=== PATIENT | female | born 1980 | race Caucasian/White ===

== ENCOUNTER 2020-10-15 04:10 | Inpatient (IN) | payer MEDICAID, SELFPAY ==
[~2020-10-15] VITALS: Ht 165.1 cm; Wt 113.4 kg
[~2020-10-15 04:10] MED LIST: ALBU0.0912 IH; ASPI-1205 PO
[2020-10-15 04:16] VITALS: BP 109/74
--- NOTE | 2020-10-15 04:16 | NUR ---
TO BED AMBULATORY
--- NOTE | 2020-10-15 04:20 | NUR ---
PT. IS A 40 Y/O FEMALE THAT CAME INTO ED WITH C/O OF SOB. PT. STATES THAT IT STARTED ON SUNDAY BECAUSE OF ALLERGIES AND PROGESSED. PT. STATES SHE HAS PAIN UNDER HER STERNUM AND BACK, RATING IT A 7/10 ON THE PAIN SCALE. SHE ALSO STATES THAT SHE VOMITED AT 3AM, BUT DENIES DIARRHEA. SKIN IS PINK/WARM/DRY; AAOX4 WITH EVEN AND STEADY GAIT;PT DENIES ANY FEVER, CP, SOB, OR COUGH AT THIS TIME; VSS; PATIENT POSITIONED FOR COMFORT; HOB ELEVATED; BEDRAILS UP X2; BED DOWN. ER MD MADE AWARE OF PT STATUS. PMH: ASTHMA ALLERGIES: NKA
[2020-10-15] MEDS ORDERED: ALBUTEROL SULFATE/IPRATROPIU 3 ML SOL IH ONE (04:25)
[2020-10-15] MEDS ORDERED: methylPREDNISolone SS 125 MG/2 ML VIAL IM ONE (04:25)
--- NOTE | 2020-10-15 04:30 | NUR ---
Respiratory Therapist at bedside for respiratory intervention.
[2020-10-15] MEDS ORDERED: ACETAMINOPHEN EXTRA STRENGTH 500 MG TAB PO ONE (04:55)
[2020-10-15 05:17] LABS: BASOPHILS % (AUTO) 0.5 % (0.0-2.0); EOSINOPHILS # (AUTO) 0.6 K/uL (0-0.4); EOSINOPHILS % (AUTO) 5.8 % (0.0-4.0); HEMATOCRIT 42.1 % (36-48); HEMOGLOBIN 14.1 g/dL (12.0-16.0); LYMPHOCYTES # (AUTO) 1.7 K/uL (2.5-16.5); LYMPHOCYTES % (AUTO) 16.9 % (20.5-51.1); MEAN CORPUSCULAR HEMOGLOBIN 30 pg (27-31); MEAN CORPUSCULAR HGB CONC 34 g/dL (33-37); MONOCYTES % (AUTO) 9.8 % (1.7-9.3); NEUTROPHILS # (AUTO) 6.5 K/uL (1.8-7.7); PLATELET COUNT (AUTO) 221 K/uL (140-450); RED BLOOD CELL COUNT(AUTO) 4.79 MIL/uL (4.20-5.40); RED CELL DISTRIBUTION WIDTH 13.9 % (11.6-13.7); WHITE BLOOD COUNT (AUTO) 9.8 K/uL (4.8-10.8)
[2020-10-15 05:40] LABS: ALBUMIN 3.4 g/dL (3.4-5.0); ANION GAP 10.7 (8-16); CARBON DIOXIDE 27.9 mmol/L (21-32); CREATININE 0.7 mg/dL (0.6-1.3); POTASSIUM 3.6 mmol/L (3.5-5.1); TOTAL BILIRUBIN 0.6 mg/dL (0.0-1.0)
--- NOTE | 2020-10-15 05:40 | NUR ---
RORY (COVID) SWAB COMPLETED AND TAKEN TO LAB.
[2020-10-15] MEDS ORDERED: ALBU0.0912 IH ×2 (05:50→06:09)
[2020-10-15] MEDS ORDERED: PRED20TA5 PO (05:50)
--- NOTE | 2020-10-15 07:10 | NUR ---
GAVE REPORT TO KWESI LAM. TRANSFER OF CARE AT THIS TIME.
[2020-10-15] MEDS ORDERED: ONDANSETRON 4 MG/2 ML VIAL IM/IVP PRN (08:05)
[2020-10-15] MEDS ORDERED: HYDROcodone/APAP 7.5/325 MG 1 TAB PO PRN (08:05)
[2020-10-15] MEDS ORDERED: ZOLPIDEM 5 MG TAB PO PRN (08:05)
[2020-10-15] MEDS ORDERED: POTASSIUM CHLORIDE 10 MEQ TABER PO PRN (08:05)
[2020-10-15] MEDS ORDERED: ACETAMINOPHEN 325 MG TAB PO PRN (08:05)
[2020-10-15] MEDS ORDERED: DOCUSATE SODIUM 100 MG GELCAP PO PRN (08:05)
--- NOTE | 2020-10-15 08:09 | NUR ---
Patient will be admitted to care of Dr Mora. Admited to [facility]. Will go to room 104B. Belongings list completed. Report to Micaela OROSCO.
[2020-10-15 08:15] VITALS: BP 138/88
[2020-10-15] MEDS ORDERED: ALBUTEROL SULFATE/IPRATROPIU 3 ML SOL IH PRN (08:15)
--- NOTE | 2020-10-15 08:15 | NUR ---
RECEIVED REPORT FROM ER. PATIENT IS AWAKE, ALERT, AND COOPERATIVE. ADMITTING DIAGNOSIS ASTHMA EXACERBATION. RESPIRATION EVEN UNLABORED ON 2L NC O2. SATING 95% NO DISTRESS NOTED. SKIN IS WARM AND DRY. IV PATENT AND INTACT. WHEEZES HEARD UPON AUSCULTATION ON THE BILATERAL LUNGS. HEART RATE REGULAR. S1&S2 NOTED. BOWEL SOUNDS PRESENT IN ALL QUADRANTS. ABDOMEN SOFT AND NON-TENDER. PLAN OF CARE WAS DISCUSSED. ALL SAFETY MEASURES IN PLACE. VITALS TAKEN. MRSA SCREEN DONE. ORIENT PATIENT TO ROOM, STAFF, AND CALL LIGHT. WILL CONTINUE TO MONITOR.
[2020-10-15] MEDS: AZITHROMYCIN 250 MG TAB PO SCH (09:30)
[2020-10-15] MEDS: NACL 0.9% 1,000 ML IV SCH ×3 (09:30→20:36)
[2020-10-15] MEDS: PANTOPRAZOLE 40 MG TABEC PO SCH (09:30)
[2020-10-15] MEDS: ALBUTEROL SULFATE/IPRATROPIU 3 ML SOL IH SCH ×2 (11:49→19:25)
[2020-10-15 12:29] LABS: PROTHROMBIN TIME 9.9 secs (10.8-13.4)
[2020-10-15 12:41] LABS: CHOL/HDL RATIO 3.1 (1-4.5); FREE T4 (FREE THYROXINE) 0.85 ng/dL (0.76-1.46); PHOSPHORUS 2.7 mg/dL (2.5-4.9); THYROID STIMULATING HORMONE 0.45 uIU/mL (0.34-3.74)
--- NOTE | 2020-10-15 12:57 | NUR ---
DISCHARGE PLANNING: THIS IS A 40 Y/O FEMALE PATIENT FROM HOME, WITH A DX OF ASTHMA EXACERBATION. PT HAS A HX OF ASTHMA ,OBESITY AND COVID 19. CXR SHOWED NO EVIDENCE OF ACUTE CARDIOPULMONARY DISEASE. RAPID COVID TEST NEGATIVE. ON 02 2L/NC SATING 95%. ADMINISTERED IV ABX ROCEPHIN AND ZITHROMAX AND CONTINUED HOME MEDS. CONSULTED WITH PULMO. DC PLAN TO GO HOME WHEN STABLE. CM TO FOLLOW.
--- NOTE | 2020-10-15 13:14 | NUR ---
CHECKED ON PATIENT. PATIENT IS AWAKE, IN BED NO DISTRESS NOTED.
--- NOTE | 2020-10-15 14:00 | NUR ---
SWAB PATIENT FOR INFLUENZA A&B.
--- NOTE | 2020-10-15 14:39 | NUR ---
PATIENT HAS BEEN SCREENED AND CATEGORIZED LOW NUTRITION RISK. PATIENT WILL BE SEEN WITHIN 7 DAYS OF ADMISSION. 10/21/[address]
--- NOTE | 2020-10-15 16:09 | NUR ---
PATIENT ALERT AND AWAKE. NOT DISTRESS NOTED. PATIENT DIAMOND HAVING PAIN AT THIS TIME. PATIENT IN BED WATCHING TV.
[2020-10-15 17:08] VITALS: BP 133/79
--- NOTE | 2020-10-15 19:02 | NUR ---
ENDORSED PATIENT TO HORSE SHOW JUDGE NURSE FOR CONTINUITY OF CARE
--- NOTE | 2020-10-15 19:10 | NUR ---
RECEIVED BEDSIDE ENDORSEMENT FROM AM SHIFT RN. PATIENT IS AAOX4, ON 2L NC O2 SAT AT 92%. NO SOB, DENIES PAIN, IVF INFUSING, AMBULATORY, SKIN INTACT, SAFETY MEASURES IN PLACE, PLAN OF CARE DISCUSSED, CALL LIGHT WITHIN REACH.
--- NOTE | 2020-10-15 19:36 | NUR ---
TITRATED PT TO ROOM AIR, TOLERATED TX WELL, WILL CONTINUE TO MONITOR
[2020-10-15 20:00] VITALS: BP 122/70
--- NOTE | 2020-10-15 20:36 | NUR ---
IVF FINISHED, HANGED A NEW BAG IV NS 1L AT 100 CC/HR ORDERED.
--- NOTE | 2020-10-15 22:44 | NUR ---
PT SWABBED FOR RSV ORDERED, TOLERATED WELL, CALL LIGHT WITHIN REACH.
[2020-10-15 23:16] LABS: RSV NEGATIVE (NEGATIVE)
[2020-10-16 04:00] VITALS: BP 121/63
--- NOTE | 2020-10-16 04:00 | NUR ---
V/S TAKEN, NO SOB, O2 SAT 93% ON ROOM AIR, WILL CONTINUE TO MONITOR, CALL LIGHT WITHIN REACH.
[2020-10-16 06:07] LABS: T4 (THYROXINE) 8.8 ug/dL (4.5-12.0)
[2020-10-16 06:44] LABS: ANION GAP 9.7 (8-16); CARBON DIOXIDE 25.3 mmol/L (21-32); CREATININE 0.5 mg/dL (0.6-1.3)
--- NOTE | 2020-10-16 06:49 | NUR ---
PATIENT STABLE, NO DISTRESS, NO SOB, ALL NEEDS ATTENDED, DENIES PAIN, KEPT COMFORTABLE, SAFETY MEASURES IN PLACE, CALL LIGHT WITHIN REACH.
[2020-10-16] MEDS: ALBUTEROL SULFATE/IPRATROPIU 3 ML SOL IH SCH ×3 (06:54→19:13)
--- NOTE | 2020-10-16 07:15 | NUR ---
REPORT RECEIVED FROM BREAST SPLITTER RN. PATIENT ALERT AND AWAKE. NO DISTRESS NOTED. O2 SAT 88-91% ON ROOM AIR. EDUCATED HER ON DEEP BREATHING EXERCISE AND USE OF INCENTIVE SPIROMETER. PATIENT DENIES HAVING PAIN AT THIS TIME. IV SITE INTACT, ASYMPTOMATIC, INFUSING IVF WELL. VERBALIZED PLAN OF CARE. SHE VERBALIZED UNDERSTANDING. WILL CONTINUE TO MONITOR PATIENT.
[2020-10-16 07:18] LABS: BASOPHILS % (AUTO) 0.1 % (0.0-2.0); EOSINOPHILS % (AUTO) 0.1 % (0.0-4.0); HEMATOCRIT 40.4 % (36-48); HEMOGLOBIN 13.7 g/dL (12.0-16.0); LYMPHOCYTES # (AUTO) 1.8 K/uL (2.5-16.5); LYMPHOCYTES % (AUTO) 20.3 % (20.5-51.1); MEAN CORPUSCULAR HEMOGLOBIN 30 pg (27-31); MEAN CORPUSCULAR HGB CONC 34 g/dL (33-37); MONOCYTES # (AUTO) 1.1 K/uL (0.8-1.0); MONOCYTES % (AUTO) 12.6 % (1.7-9.3); NEUTROPHILS # (AUTO) 5.9 K/uL (1.8-7.7); NEUTROPHILS % (AUTO) 66.9 % (42.2-75.2); PLATELET COUNT (AUTO) 231 K/uL (140-450); RED BLOOD CELL COUNT(AUTO) 4.59 MIL/uL (4.20-5.40); RED CELL DISTRIBUTION WIDTH 14.3 % (11.6-13.7); WHITE BLOOD COUNT (AUTO) 8.8 K/uL (4.8-10.8)
[2020-10-16 07:51] VITALS: BP 96/55
[2020-10-16] MEDS ORDERED: DEXAMETHASONE 4 MG TAB ONE (08:20)
[2020-10-16] MEDS: NACL 0.9% 1,000 ML IV SCH ×2 (08:23→20:18)
[2020-10-16] MEDS: PANTOPRAZOLE 40 MG TABEC PO SCH (08:23)
[2020-10-16] MEDS: AZITHROMYCIN 250 MG TAB PO SCH (08:23)
--- NOTE | 2020-10-16 08:25 | NUR ---
ORDERED MEDICATIONS GIVEN. PATIENT TOLERATING THEM. NO COMPLAINTS AT THIS TIME. ON ROOM AIR, O2 SAT 91-92%. NO S/S OF DISTRESS OR SOB NOTED. CALL LIGHT WITHIN REACH, WILL CONTINUE TO MONITOR PATIENT.
[2020-10-16] MEDS ORDERED: DEXAMETHASONE 4 MG TAB PO SCH (09:00)
[2020-10-16] MEDS: guaiFENesin DM 200/20 MG-10 ML 10 ML UDC PO PRN ×2 (10:50→17:29)
--- NOTE | 2020-10-16 10:50 | NUR ---
PT HAS COUGH, REQUESTED FOR PRN COUGH MEDICATION. GIVEN REQUESTED. NO OTHER COMPLAINTS AT THIS TIME. O2 93-94% ON ROOM AIR. WILL CONTINUE TO MONITOR.
[2020-10-16] MEDS: methylPREDNISolone SS 125 MG/2 ML VIAL IVP SCH ×2 (13:27→20:20)
--- NOTE | 2020-10-16 15:45 | NUR ---
CALLED LAB TO ASK ABOUT PCR COVID PENDING TEST. WAS INFORMED RESULTS WILL USUALLY COME BACK IN 2-3 DAYS. PT HAS NO COMPLAINTS AT THIS TIME. WILL CONTINUE TO MONITOR PATIENT.
--- NOTE | 2020-10-16 16:10 | NUR ---
RECEIVED CALL FROM TRACIE FROM LAB, INFORMED NEED FOR URINE SAMPLE, INFORMED PATIENT. PATIENT AWARE TO WHEN VOID, GIVE URINE SAMPLE. CALL LIGHT WITHIN REACH, WILL CONTINUE TO MONITOR PATIENT.
[2020-10-16 16:30] VITALS: BP 114/63
--- NOTE | 2020-10-16 18:40 | NUR ---
PT HAS NO COMPLAINTS AT THIS TIME. ASKED ABOUT POSSIBILITY OF GOING HOME TODAY. INFORMED HER OF PLAN OF CARE, SHE VERBALIZED UNDERSTANDING. WILL CONTINUE TO MONITOR PATIENT AND ENDORSE TO GROUND WATER CONTRACTOR NURSE.
--- NOTE | 2020-10-16 19:21 | NUR ---
RECEIVED BEDSIDE ENDORSEMENT FROM AM SHIFT RN. PATIENT IS AAOX4, ON ROOM AIR, NO SOB, IVF INFUSING, AMBULATORY, SKIN INTACT, SAFETY MEASURES IN PLACE, PLAN OF CARE DISCUSSED, CALL LIGHT WITHIN REACH.
[2020-10-16] MEDS: BUDESONIDE 0.5 MG/2 ML NEBU INH SCH (19:23)
[2020-10-16 20:00] VITALS: BP 135/80
--- NOTE | 2020-10-16 20:27 | NUR ---
PATIENT IS AWAKE AND TALKING ON THE PHONE, DUE MEDS GIVEN ORDERED, IVF FINISHED AND REPLACED, IV SITE INTACT AND PATENT, WILL CONTINUE TO MONITOR, CALL LIGHT WITHIN REACH.
--- NOTE | 2020-10-17 | NUR ---
PATIENT IS ASLEEP. RESPIRATION EVEN AND UNLABORED, WILL CONTINUE TO MONITOR, CALL LIGHT WITHIN REACH.
--- NOTE | 2020-10-17 03:30 | NUR ---
O2 SAT 90%, NOTED CHEST RISE, CALL LIGHT WITHIN REACH.
[2020-10-17] MEDS: methylPREDNISolone SS 125 MG/2 ML VIAL IVP SCH (04:52)
--- NOTE | 2020-10-17 04:58 | NUR ---
DUE MEDS GIVEN ORDERED, TOLERATED WELL, CALL LIGHT WITHIN REACH.
--- NOTE | 2020-10-17 06:42 | NUR ---
PATIENT STABLE, NO SOB, NO DISTRESS, NO ACUTE EVENTS OVERNIGHT, ALL NEEDS ATTENDED, SAFETY MEASURES IN PLACE, CALL LIGHT WITHIN REACH.
[2020-10-17 07:09] LABS: BASOPHILS % (AUTO) 0.1 % (0.0-2.0); HEMATOCRIT 43.6 % (36-48); HEMOGLOBIN 14.5 g/dL (12.0-16.0); LYMPHOCYTES # (AUTO) 1.5 K/uL (2.5-16.5); LYMPHOCYTES % (AUTO) 13.8 % (20.5-51.1); MEAN CORPUSCULAR HEMOGLOBIN 30 pg (27-31); MEAN CORPUSCULAR HGB CONC 33 g/dL (33-37); MEAN CORPUSCULAR VOLUME 89.1 fL (80-94); MONOCYTES # (AUTO) 0.3 K/uL (0.8-1.0); MONOCYTES % (AUTO) 2.5 % (1.7-9.3); NEUTROPHILS # (AUTO) 8.9 K/uL (1.8-7.7); NEUTROPHILS % (AUTO) 83.6 % (42.2-75.2); PLATELET COUNT (AUTO) 260 K/uL (140-450); WHITE BLOOD COUNT (AUTO) 10.6 K/uL (4.8-10.8)
[2020-10-17 07:13] LABS: ANION GAP 11.1 (8-16); CARBON DIOXIDE 24.8 mmol/L (21-32); CREATININE 0.5 mg/dL (0.6-1.3); POTASSIUM 3.9 mmol/L (3.5-5.1)
--- NOTE | 2020-10-17 07:20 | NUR ---
RECEIVED BEDSIDE ENDORSEMENT FROM ORANGE PICKER NURSE FOR CONTINUITY OF CARE. PATIENT IS AAOX4, RESPIRATIONS EVEN AND UNLABORED. ON ROOM AIR AND NO SIGNS OF DISTRESS NOTED. PATIENT COMPLAINS OF COUGH WILL MEDICATE ORDERED. SKIN IS WARM AND DRY. IV SITE ON RAC 20G. IVF INFUSING, AMBULATORY. PLAN OF CARE DISCUSSED. SAFETY MEASURES IN PLACE, CALL LIGHT WITHIN REACH. WILL CONTINUE TO MONITOR.
[2020-10-17] MEDS: ALBUTEROL SULFATE/IPRATROPIU 3 ML SOL IH SCH (07:35)
[2020-10-17] MEDS: BUDESONIDE 0.5 MG/2 ML NEBU INH SCH (07:35)
[2020-10-17 08:00] VITALS: BP 131/73
[2020-10-17] MEDS: AZITHROMYCIN 250 MG TAB PO SCH (09:41)
[2020-10-17] MEDS: PANTOPRAZOLE 40 MG TABEC PO SCH (09:41)
[2020-10-17] MEDS: guaiFENesin DM 200/20 MG-10 ML 10 ML UDC PO PRN (09:46)
--- NOTE | 2020-10-17 09:46 | NUR ---
PATIENT REQUESTED FOR COUGH MEDICATION DUE TO PERSISTENT COUGH. ADMINISTERED ROBITUSSIN PO PER MD ORDERED.
[2020-10-17] MEDS: NACL 0.9% 1,000 ML IV SCH (09:50)
--- NOTE | 2020-10-17 09:50 | NUR ---
ALL SCHEDULED MEDS GIVEN. PT IS STABLE. NO DISTRESS NOTED. WILL CONTINUE TO MONITOR.
[2020-10-17] MEDS ORDERED: BUDE1AER IH (10:00)
[2020-10-17] MEDS ORDERED: PRED5TAB7 PO (10:00)
[2020-10-17] MEDS ORDERED: AZIT250T3 PO (10:00)
[2020-10-17] MEDS ORDERED: CEPH250C16 PO (10:00)
--- NOTE | 2020-10-17 10:05 | NUR ---
RECEIVED NEW DISCHARGE ORDERS FOR PATIENT. WILL ENDORSE TO DISCHARGE INSTRUCTIONS TO PATIENT.
[2020-10-17 10:36] VITALS: BP 131/73
--- NOTE | 2020-10-17 10:45 | NUR ---
ENDORSED DISCHARGE INSTRUCTIONS TP PATIENT. PATIENT VERBALIZE UNDERSTANDING AND SIGNED DISCHARGE FORMS.
--- NOTE | 2020-10-17 11:25 | NUR ---
PATIENT DISCHARGED OFF THE UNIT. IV CATH AND ID BAND REMOVED. PATIENT PICKED UP BY FAMILY AT THE FRONT LOBBY. PATIENT WAS STABLE PRIOR TO DISCHARGE.
[2020-10-17 13:27] LABS: APPEARANCE,URINE CLEAR (CLEAR); BILIRUBIN,URINE NEGATIVE (NEGATIVE); BLOOD, URINE NEGATIVE (NEGATIVE); COLOR,URINE YELLOW (YELLOW); LEUKOCYTE ESTERASE ,URINE NEGATIVE (NEGATIVE); NITRITE, URINE NEGATIVE (NEGATIVE); PH,URINE 5.5 (5.0-9.0); UGLUCOSE 1+ (NEGATIVE)
[2020-10-17 13:41] LABS: BARBITURATE, URINE NEGATIVE ng/ml (NEG <=200); BENZODIAZEPINE, URINE NEGATIVE ng/mL (NEG <=200); CANNABINOID, URINE NEGATIVE ng/mL (NEG <=50); COCAINE, URINE NEGATIVE ng/mL (NEG <=300); OPIATE, URINE NEGATIVE ng/mL (NEG <=2000); PHENCYCLIDINE SCREEN,URINE NEGATIVE ng/mL (NEG <=25)
== END 2020-10-17 11:25 | disposition home or self-care (01) | DRG 189 ==
LOC: MED 04:10 → MMU 06:25 → MTU 07:02
PROVIDERS: ADMIT Family Medicine; ATTEND Family Medicine
DX: J96.01 Acute respiratory failure with hypoxia (principal); J45.901 Unspecified asthma with (acute) exacerbation; Z68.41 Body mass index [BMI] 40.0-44.9, adult; Z20.822 Contact with and (suspected) exposure to COVID-19; E66.01 Morbid (severe) obesity due to excess calories; R73.9 Hyperglycemia, unspecified; Z86.16 Personal history of COVID-19
CPT/HCPCS: 36415; 71045; 80048; 80053; 80305; 81003; 82150; 83036; 83690; 83735; 83880; 84100; 84436; 84439; 84443; 84479; 84484; 85025; 85610; 85730; 87081; 87420; 87804; 93005; 94640; 96372; 99291; 99292; J0696; J2930; J7060; J7626; U0003

== ENCOUNTER 2023-12-12 11:27 | Emergency (ER) | payer SELFPAY ==
[~2023-12-12] VITALS: Ht 165.1 cm; Wt 131.1 kg
[~2023-12-12 11:27] MED LIST changes: -ASPI-1205 PO; +AZIT250T3 PO; +BUDE1AER IH; +CEPH250C16 PO; +PRED5TAB7 PO
[2023-12-12 12:02] VITALS: BP 132/72; PULSE 98; RESP 22; O2SAT 97
[2023-12-12] MEDS: IBUPROFEN 600 MG TAB PO ONE (13:18)
[2023-12-12] MEDS: ACETAMINOPHEN EXTRA STRENGTH 500 MG TAB PO ONE (13:18)
[2023-12-12 14:18] LABS: FLU A ANTIGEN negative (NEGATIVE); FLU B ANTIGEN NEGATIVE (NEGATIVE)
[2023-12-12] MEDS ORDERED: ONDA-188 PO (15:03)
[2023-12-12] MEDS ORDERED: NIRM1TAB9 PO (15:03)
[2023-12-12] MEDS ORDERED: PROM118S6 PO (15:03)
[2023-12-12 15:15] VITALS: TEMP 99.3
== END 2023-12-12 15:15 | disposition home or self-care (01) ==
LOC: MED 11:27
DX: U07.1 COVID-19 (principal); J45.909 Unspecified asthma, uncomplicated; Z79.899 Other long term (current) drug therapy
CPT/HCPCS: 99283